=== PATIENT | male | born 1990 | race African-American/Black ===

== ENCOUNTER 2017-09-11 23:59 | Emergency (ER) | payer MEDICAID ==
[~2017-09-11] VITALS: Ht 182.9 cm; Wt 84.0 kg
[2017-09-12 01:40] VITALS: BP 120/72
== END 2017-09-12 01:41 | disposition home or self-care (01) ==
LOC: ER 09-12 00:36
DX: S51.812A Laceration without foreign body of left forearm, initial encounter (principal); J45.909 Unspecified asthma, uncomplicated; F12.10 Cannabis abuse, uncomplicated; W26.0XXA Contact with knife, initial encounter; Y93.89 Activity, other specified; Y99.8 Other external cause status; Y92.89 Other specified places as the place of occurrence of the external cause
CPT/HCPCS: 99283; Z7610

== ENCOUNTER 2017-09-26 08:31 | Emergency (ER) | payer MEDICAID ==
[~2017-09-26] VITALS: Ht 182.9 cm; Wt 84.0 kg
[2017-09-26] MEDS ORDERED: IBUPROFEN 600MG TABLET PO ONE (10:30)
[2017-09-26] MEDS ORDERED: LIDOCAINE HCL 1% 20ML VIAL (Pyxis) INJ MC ONE (10:30)
[2017-09-26] MEDS ORDERED: BACITRACIN ZINC OINT UDPKT TOP ONE (10:30)
[2017-09-26 11:06] VITALS: BP 110/75
== END 2017-09-26 11:06 | disposition home or self-care (01) ==
LOC: ER 09:05
DX: S50.12XA Contusion of left forearm, initial encounter (principal); L03.114 Cellulitis of left upper limb; J45.909 Unspecified asthma, uncomplicated; F12.10 Cannabis abuse, uncomplicated; X58.XXXA Exposure to other specified factors, initial encounter; Y93.67 Activity, basketball; Y92.89 Other specified places as the place of occurrence of the external cause; Y99.8 Other external cause status
CPT/HCPCS: 10060; 99284; J3490; Z7610

== ENCOUNTER 2019-07-20 14:33 | Emergency (ER) | payer MEDICAID ==
[~2019-07-20] VITALS: Ht 182.9 cm; Wt 80.0 kg
[2019-07-20 15:09] VITALS: BP 113/63
== END 2019-07-20 18:02 | disposition home or self-care (01) ==
LOC: ER 14:33
DX: S09.8XXA Other specified injuries of head, initial encounter (principal); J45.909 Unspecified asthma, uncomplicated; F12.10 Cannabis abuse, uncomplicated; W01.0XXA Fall on same level from slipping, tripping and stumbling without subsequent striking against object, initial encounter; Y93.89 Activity, other specified; Y92.89 Other specified places as the place of occurrence of the external cause; Y99.8 Other external cause status
CPT/HCPCS: 99281

== ENCOUNTER 2020-02-06 22:55 | Emergency (ER) | payer MEDICAID ==
[~2020-02-06] VITALS: Ht 182.9 cm; Wt 85.0 kg
[2020-02-07] MEDS ORDERED: KETOROLAC 60MG/2ML VIAL IM ONE (01:45)
[2020-02-07 03:34] VITALS: BP 112/77
== END 2020-02-07 03:35 | disposition home or self-care (01) ==
LOC: ER 22:55
DX: M25.531 Pain in right wrist (principal); F12.10 Cannabis abuse, uncomplicated
CPT/HCPCS: 73110; 96372; 99283; J1885

== ENCOUNTER 2024-05-07 00:58 | Emergency (ER) | payer MEDICAID, OTHER ==
[~2024-05-07] VITALS: Ht 182.9 cm; Wt 78.3 kg
[2024-05-07 01:20] VITALS: O2SAT 100
[2024-05-07] MEDS ORDERED: HYDROCODONE/ACETAMINOPHEN 5/325MG TABLET PO ONE (01:45)
[2024-05-07] MEDS ORDERED: KETOROLAC 30MG/ML VIAL IM ONE (01:45)
[2024-05-07] MEDS: KETOROLAC 30MG/ML VIAL IV ONE (02:06)
[2024-05-07] MEDS: MORPHINE SULFATE 4 MG/ML INJ (FOR IV/IM USE) IV ONE ×2 (02:06→04:29)
[2024-05-07 02:32] LABS: BASOPHILS % 0.5 % (0.0-2.0); HEMATOCRIT. 43.6 % (42.0-52.0); HEMOGLOBIN. 14.2 g/dL (14.0-18.0); LYMPHOCYTES % 25.7 % (20.0-50.0); MEAN CORPUSCULAR HEMOGLOBIN 31.9 pg (28.0-32.0); MEAN CORPUSCULAR HGB CONC 32.6 g/dL (31.0-37.0); MEAN CORPUSCULAR VOLUME 97.9 fL (80.0-94.0); MEAN PLATELET VOLUME 9.2 fl (7.4-10.4); MONOCYTES % 11.8 % (2.0-8.0); PLATELET 232 x1000/uL (130-400); RED BLOOD CELL COUNT 4.46 mill/uL (4.7-6.1); RED CELL DISTRIBUTION WIDTH 14.2 % (11.6-14.6); WHITE BLOOD COUNT 6.7 x1000/uL (4.5-11.0)
[2024-05-07 02:39] LABS: CHLORIDE 108 mEq/L (98-107); POTASSIUM 3.9 mEq/L (3.5-5.1); SODIUM 143 mEq/L (136-145)
[2024-05-07 02:40] LABS: CALCIUM 9.6 mg/dL (8.7-10.4); CARBON DIOXIDE 28 mEq/L (21-32)
[2024-05-07 02:45] LABS: CREATININE 1.2 mg/dL (0.6-1.3); GLUCOSE 98 mg/dL (70-105); UREA NITROGEN BLOOD 13 mg/dL (9-23)
[2024-05-07 02:46] LABS: ALANINE AMINOTRANSFERASE 21 IU/L (10-49)
[2024-05-07 02:47] LABS: ALBUMIN 4.6 g/dL (3.2-4.8); ASPARTATE AMINOTRANSFERASE 19 IU/L (<34); BILIRUBIN TOTAL 0.5 mg/dL (0.1-1.0); PROTEIN TOTAL 7.2 g/dL (6.0-8.3)
[2024-05-07] MEDS: CEFAZOLIN 1000MG PREMIX 50 ML IV ONE (03:07)
[2024-05-07 09:02] VITALS: BP 106/64; PULSE 77; RESP 18; TEMP 36.89184; O2SAT 100
== END 2024-05-07 10:25 | disposition short-term general hospital (02) ==
LOC: ER 00:58
DX: S02.69XA Fracture of mandible of other specified site, initial encounter for closed fracture (principal); F31.9 Bipolar disorder, unspecified; F12.90 Cannabis use, unspecified, uncomplicated; Y04.0XXA Assault by unarmed brawl or fight, initial encounter; Y93.89 Activity, other specified; Y92.89 Other specified places as the place of occurrence of the external cause; Y99.8 Other external cause status
CPT/HCPCS: 99285; 70450; 96365; 96375; 80053; 85025; 36415; 70486; 72125; 96376; J0690; J1885; J2270